=== PATIENT | female | born 1985 | race Caucasian/White ===

== ENCOUNTER 2017-07-12 17:05 | Emergency (ER) | payer OTHER ==
--- NOTE | 2017-07-12 18:08 | ED Physician Documentation ---
Fall - HISTORIAN Historian: patient - HPI Stated Complaint: Fell on porch, pain to Rt wrist and struck forehead on rail Chief Complaint: Fall Additional Information: pt coming out of house slipped wet step w/hit mid rt forehead w/ams and rt wrist pain no loc-went to clinic sent here for eval-still headache- denies neck pain Onset: hours (2ago) Where: home Context: slipped, lost balance r: moderate Associated Symptoms:: no loss of consciousness, dazed, other (l) Location of Pain/Injury: head, upper extremity Injury to Right Extremity: wrist, hand Injury to Left Extremity: none - ROS CONST: other (headache nausea) MS/SKIN/LYMPH: denies: weakness, numbness, neck pain, back pain EYES/ENT: denies: problems with vision CVS/RESP: denies: chest pain GI/: nausea. denies: problems urinating, vomiting - PAST HX Past History: none - SOCIAL HX Smoking History: greater than 1 pack/day Alcohol Use: none Drug Use: none - FAMILY HX Family History: no significant history - VITAL SIGNS Vital Signs: Vital Signs Temp Pulse Resp BP Pulse Ox 88 16 101/65 98 07/12/17 17:05 07/12/17 17:05 07/12/17 17:05 07/12/17 17:05 - REVIEWED ASSESSMENTS Nursing Assessment Reviewed: Yes Vitals Reviewed: Yes <Ganesh Penaloza - Last Filed: 07/12/17 19:13> - VITAL SIGNS Vital Signs: Vital Signs Temp Pulse Resp BP Pulse Ox 88 16 101/65 98 07/12/17 17:05 07/12/17 17:05 07/12/17 17:05 07/12/17 17:05 <MARIA C ROMAN - Last Filed: 07/12/17 19:45> - PAST HX Allergies/Adverse Reactions: Allergies Allergy/AdvReac Type Severity Reaction Status Date / Time cephalexin monohydrate Allergy Severe Throat Verified 07/12/17 17:23 [From Keflex] Swelling Home Medications: Ambulatory Orders Medication Instructions Recorded NK [NK] 07/12/17 Progress - Results/Orders Results/Orders: reji LOMBARDI 1908 <Ganesh Penaloza - Last Filed: 07/12/17 19:13> - Progress Progress: Study Name: HARITHA ADAME Date: Jul 12, 2017 6:19:13 PM CDT Modality Type: CR Gender: F Description: UPPER EXTREMITY : 87 Institution: [facility] Physician: GANESH PENALOZA Examination: Plain film wrist History: Wrist injury Comparison exams: None available Findings: 3 views the wrist demonstrate normal cortical margins. No fracture. No dislocation. No soft tissue abnormality. Impression: No acute osseous abnormality. Electronically signed on Jul 12, 2017 6:45:38 PM CDT by: Charles Cain Study Name: HARITHA ADAME Date: Jul 12, 2017 6:13:57 PM CDT Modality Type: CT\SR Gender: F Description: CT BRAIN W/O CONTRAST : 87 Institution: [facility] Physician: GANESH PENALOZA Examination: CT head without contrast History: Fall Comparison exam: None available Technique: Noncontrast head CT protocol. Findings: Ventricles and sulci are appropriate for patient age. Cerebrocerebellar parenchyma demonstrates normal attenuation. No evidence for parenchymal hemorrhage. No evidence for mass or mass effect. No midline shift. No extra axial fluid collections. Partial visualization of the paranasal sinuses demonstrate scattered mucous thickening. Mastoid air cells, orbits, skull and scalp without gross irregularity. Falx calcifications. Impression: No acute parenchymal process. No hemorrhage. Electronically signed on Jul 12, 2017 6:43:21 PM CDT by: Charles Cain <MARIA C ROMAN - Last Filed: 07/12/17 19:45> ED Results Lab/Radiology - Orders Orders: ED Orders Category Date Time Status CT BRAIN W/O CONTRAST Stat Exams 07/12/17 Ordered WRIST 3 VIEWS OR MORE [RAD] Stat Exams 07/12/17 Ordered <Ganesh Penaloza - Last Filed: 07/12/17 19:13> - Orders Orders: ED Orders Category Date Time Status CT BRAIN W/O CONTRAST Stat Exams 07/12/17 Ordered WRIST 3 VIEWS OR MORE [RAD] Stat Exams 07/12/17 Ordered <MARIA C ROMAN Last Filed: 07/12/17 19:45> Fall Physical Exam - Physical Exam General Appearance: mild distress Head: No: non-tender, no swelling Neck: non-tender, painless ROM, trachea midline. No: pain with neck movement, axial compression Eye: EOMI. No: HANG (lt pupil poss sl larger than rt both reactive) ENT: nml external inspection Resp/CVS: chest non-tender, no ecchymosis, breath sounds nml, no resp. distress , heart sounds nml. No: rib tenderness Abdomen: soft, non-tender Neuro: oriented x3, sensation nml, motor nml, mood/affect nml. No: unsteady gait Back: normal inspection Joint: joints nml, nml ROM (rt wrist tender to movement) - René Coma Score Eyes Open: Spontaneous Speech: Oriented Motor: Obeys Commands <Ganesh Penaloza - Last Filed: 07/12/17 19:13> Discharge <Ganesh Penaloza - Last Filed: 07/12/17 19:13> Decision to Admit: NO Decision Time: 19:43 <MARIA C ROMAN - Last Filed: 07/12/17 19:45> Clincal Impression: Fall (on) (from) other stairs and steps, initial encounter Contusion of head Qualifiers: Encounter type: initial encounter Contusion of head detail: other part of head Qualified Code(s): S00.83XA - Contusion of other part of head, initial encounter Contusion of wrist Qualifiers: Encounter type: initial encounter Laterality: right Qualified Code(s): S60.211A - Contusion of right wrist, initial encounter Referrals: Raul Pop MD [Primary Care Provider] - 2 Days Additional Instructions: Ice to the sore areas for 20 minutes of each hour you are awake for 2 days. If you develop prolonged vomiting or unusual behavior, return to the ER immediately. Condition: Good Disposition: 01 HOME, SELF-CARE
[2017-07-12 20:23] VITALS: BP 108/68
--- NOTE | 2017-07-13 06:44 | Diagnostic Imaging Report ---
JESUS DAWSON [facility] [address] [facility] [address] [place], [place]. [address] Report Submission Date: Jul 12, 2017 6:43:21 PM CDT Patient Study Name: HARITHA ADAME Date: Jul 12, 2017 6:13:57 PM CDT Modality Type: CT\SR Gender: F Description: CT BRAIN W/O CONTRAST : 87 Institution: [facility] Physician: JESUS DAWSON Examination: CT head without contrast History: Fall Comparison exam: None available Technique: Noncontrast head CT protocol. Findings: Ventricles and sulci are appropriate for patient age. Cerebrocerebellar parenchyma demonstrates normal attenuation. No evidence for parenchymal hemorrhage. No evidence for mass or mass effect. No midline shift. No extra axial fluid collections. Partial visualization of the paranasal sinuses demonstrate scattered mucous thickening. Mastoid air cells, orbits, skull and scalp without gross irregularity. Falx calcifications. Impression: No acute parenchymal process. No hemorrhage. Electronically signed on Jul 12, 2017 6:43:21 PM CDT by: Charles HANNA
--- NOTE | 2017-07-13 06:46 | Diagnostic Imaging Report ---
JESUS DAWSON [facility] [place] [facility] [address] [facility] [address] Report Submission Date: Jul 12, 2017 6:45:38 PM CDT Patient Study Name: HARITHA ADAME Date: Jul 12, 2017 6:19:13 PM CDT Modality Type: CR Gender: F Description: UPPER EXTREMITY : 87 Institution: [facility] [place] [facility] Physician: JESUS DAWSON Examination: Plain film wrist History: Wrist injury Comparison exams: None available Findings: 3 views the wrist demonstrate normal cortical margins. No fracture. No dislocation. No soft tissue abnormality. Impression: No acute osseous abnormality. Electronically signed on Jul 12, 2017 6:45:38 PM CDT by: Charles HANNA
== END 2017-07-12 19:50 | disposition home or self-care (01) ==
LOC: ED 17:05
DX: S60.211A Contusion of right wrist, initial encounter (principal); S00.83XA Contusion of other part of head, initial encounter; W19.XXXA Unspecified fall, initial encounter; Y93.9 Activity, unspecified; Y99.9 Unspecified external cause status
CPT/HCPCS: 70450; 73110; 99283